=== PATIENT | male | born 1960 | race Caucasian/White ===

== ENCOUNTER 2017-09-21 09:57 | Emergency (ER) | payer BC ==
[~2017-09-21] VITALS: Ht 175.3 cm; Wt 77.1 kg
[2017-09-21 10:35] VITALS: BP 137/71
[2017-09-21] MEDS ORDERED: Lidocaine 1% 10mg/ml/Epi 0.005mg/ml 30ml vial INJ ONE (10:59)
[2017-09-21] MEDS ORDERED: AUGMENTIN 875-1 EAC1 ORAL (11:53)
--- NOTE | 2017-09-21 11:57 | Emergency Room Report ---
History of Present Illness General Chief Complaint: Animal Bite Source: Patient Present Illness HPI 57-year-old male comes with complaints of left ear dog bite to the lobe portion of the ear The dog is his, fully vaccinated, and his (patient's) tetanus is up-to-date as well Minimal bleeding report just came to have it repaired as there is a cut on the back Allergies: Coded Allergies: [place] Grass (Verified Allergy, Unknown, 09/21/17) Patient History Past Medical History: see triage record Reviewed Nursing Documentation: PMH: Agreed; PSxH: Agreed Nursing Documentation-PMH Hx Asthma: Yes Review of Systems All Other Systems: negative except mentioned in HPI Physical Exam Vital Signs Date Time Temp Pulse Resp B/P (MAP) Pulse Ox O2 Delivery O2 Flow Rate FiO2 09/21/17 10:11 98.0 71 18 137/71 97 98.1 Sp02 EP Interpretation: reviewed, normal General Appearance: no apparent distress, alert, non-toxic Head: normocephalic Eyes: bilateral eye normal inspection, bilateral eye PERRL, bilateral eye EOMI ENT: normal ENT inspection, hearing grossly normal, normal pharynx, no angioedema, normal voice, moist mucus membranes, other - Left earlobe with 2 lacerations, one anterior measuring 1.5 cm very superficial no bleeding and good apposition of wound edges Neck: normal inspection, full range of motion, supple, supple/symm/no masses Respiratory: chest non-tender, no respiratory distress, no accessory muscle use , chest symmetrical, palpation of chest normal Cardiovascular #1: normal peripheral pulses Cardiovascular #2: 2+ radial (R), 2+ radial (L) Gastrointestinal: normal inspection, non tender, soft, no mass, no guarding, no rebound Rectal: deferred Genitourinary: normal inspection, no CVA tenderness Musculoskeletal: back normal, gait/station normal, normal range of motion, non- tender, no calf tenderness Neurologic: alert, responsive, 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, motor strength/tone normal, sensory intact, speech normal Psychiatric: judgement/insight normal, memory normal, mood/affect normal, no suicidal/homicidal ideation Skin: normal color, no rash, warm/dry, normal turgor Lymphatic: no adenopathy Procedures Laceration/Wound Repair Laceration/Wound Repair : Consent: Verbal Wound Location: other - Left earlobe, posterior aspect Wound's Depth, Shape: superficial, linear Wound Length (cm): 2 Wound Explored: clean Betadine Prep?: Yes Anesthesia: Lidocaine w/ Epi Volume Anesthetic (ccs): 3 Wound Repaired With: sutures Suture Size/Type: 6:0 Number of Sutures: 3 Layer Closure?: No Sterile Dressing Applied?: Yes Progress copious tapwater irrigation Medical Decision Making Last Vital Signs Date Time Temp Pulse Resp B/P (MAP) Pulse Ox O2 Delivery O2 Flow Rate FiO2 09/21/17 10:35 98.1 18 137/71 97 98.1 09/21/17 10:11 71 Scripts Amoxicillin/Potassium Clav 875-125* (AUGMENTIN 875-125 TABLET*) 1 Each Tablet 1 TAB ORAL TWICE A DAY, #14 TAB Prov: LINETTE MARTIN M.D 09/21/17 Referrals: NOT CHOSEN CORTNEY/,REFERRING (PCP) LINETTE MARTIN M.D Sep 21, 2017 11:57
[2017-09-21 12:04] VITALS: BP 129/77
== END 2017-09-21 12:05 | disposition home or self-care (01) ==
LOC: EMR 11:43
DX: S01.352A Open bite of left ear, initial encounter (principal); W54.0XXA Bitten by dog, initial encounter; Y92.9 Unspecified place or not applicable; J45.909 Unspecified asthma, uncomplicated
CPT/HCPCS: 99284